=== PATIENT | female | born 1965 | race Caucasian/White ===

== ENCOUNTER → 2023-02-11 | Outpatient (CLI) | payer MEDICAID ==
[2023-02-11 16:16] LABS: ALT 16 U/L (8-44); AST 18 U/L (13-35); Albumin 4.5 d/dL (3.8-4.9); Alkaline Phosphatase 78 U/L (41-126); BUN/Creat Ratio 14.25 Ratio (12.00-20.00); Blood Urea Nitrogen 11.4 mg/dL (9.0-27.0); Calcium 9.4 mg/dL (8.7-10.3); Carbon Dioxide 26.5 mmol/L (21.6-31.8); Chloride 107 mmol/L (96-109); Chol/HDL Ratio 3.14 Ratio; Globulin 1.8 d/dL (1.6-3.3); Glucose 96 mg/dL (70-110); Potassium 4.4 mmol/L (3.5-5.5); Rheumatoid Factor, Qnt <15 IU/mL (0-15); Sodium 145 mmol/L (135-145); Total Bilirubin 0.4 mg/dL (0.3-1.2); Total Protein 6.3 d/dL (6.2-8.2); Uric Acid 4.2 mg/dL (2.9-7.7)
== END | disposition home or self-care (01) ==
LOC: LABWHC1 08:54
PROVIDERS: ATTEND Family Medicine
DX: I10 Essential (primary) hypertension (principal); E78.5 Hyperlipidemia, unspecified; M75.50 Bursitis of unspecified shoulder
CPT/HCPCS: 36415; 80053; 80061; 84443; 84550; 86431

== ENCOUNTER → 2023-11-12 | Outpatient (CLI) | payer MEDICAID ==
--- NOTE | 2023-11-17 07:48 | MM ---
Reason for Exam: Screening (asymptomatic). Last mammogram was performed 1 year(s) and 4 month(s) ago. Patient History: Menarche at age 8. Patient has no children. Postmenopausal. Risk Values: Mira 5 year model risk: 1.8%. NCI Lifetime model risk: 8.9%. Prior Study Comparison: 06/22/2015 Bilateral MG 3D screening mammo w/cad, [facility]. 07/11/2016 Bilateral MG 3D screening mammo w/cad, [facility]. 07/09/2022 Bilateral MG 3D screening mammo w/cad, [facility]. Tissue Density: The breasts are heterogeneously dense, which may obscure small masses. Findings: Analyzed By CAD. There is no suspicious group of microcalcifications or new suspicious mass in either breast. Overall Assessment: Benign, BI-RAD 2 Management: Screening Mammogram of both breasts in 1 year. . Patient should continue monthly self-breast exams. A clinical breast exam by your physician is recommended on an annual basis. This exam should not preclude additional follow-up of suspicious palpable abnormalities. Note on Mira scores and lifetime risk: 1. A Mira score greater than 3% is considered moderate risk. If this is the case, consider specialist referral to assess eligibility for a risk reducing agent. 2. If overall lifetime risk for the development of breast cancer is 20% or higher, the patient may qualify for future screening with alternating mammogram and breast MRI. Electronically signed and approved by: Dago Rivera M.D. Radiologis
== END | disposition home or self-care (01) ==
LOC: RADMAMWWP 08:01
PROVIDERS: ATTEND Obstetrics & Gynecology
DX: Z12.31 Encounter for screening mammogram for malignant neoplasm of breast (principal); Z78.0 Asymptomatic menopausal state
CPT/HCPCS: 77063; 77067